=== PATIENT | male | born 1985 | race Caucasian/White ===

== ENCOUNTER 2016-10-10 09:56 | Outpatient (CLI) | payer OTHER | END 2016-10-10 09:57 | disposition home or self-care (01) | DX: G47.30 Sleep apnea, unspecified (principal); G47.8 Other sleep disorders; G47.10 Hypersomnia, unspecified; R06.83 Snoring ==

== ENCOUNTER 2016-10-20 21:13 | Outpatient (CLI) | payer OTHER | END 2016-10-20 21:14 | disposition home or self-care (01) | DX: G47.30 Sleep apnea, unspecified (principal); R00.1 Bradycardia, unspecified ==